=== PATIENT | male | born 1995 | race Two or more races ===

== ENCOUNTER 2022-07-01 23:16 | Inpatient (IN) | payer MEDICAID, OTHER ==
[~2022-07-01] VITALS: Ht 167.6 cm; Wt 54.9 kg
[2022-07-02 02:05] LABS: COVID AG,FIA SOURCE NASAL SWAB
[2022-07-02] MEDS ORDERED: ZOLPIDEM TARTRATE 10 MG TABLET PO PRN (02:30)
[2022-07-02] MEDS ORDERED: HALOPERIDOL 5 MG TABLET PO PRN (02:30)
[2022-07-02] MEDS ORDERED: LORazepam 2 MG TABLET PO PRN (02:30)
[2022-07-02 05:03] VITALS: BP 128/72
[2022-07-02 08:06] VITALS: BP 126/76
[2022-07-02] MEDS ORDERED: ACETAMINOPHEN 325 MG TABLET PO PRN (14:30)
[2022-07-02] MEDS ORDERED: MAGNESIUM HYDROXIDE SUSPENSION 30 ML UDCUP PO PRN (14:30)
[2022-07-02] MEDS ORDERED: BACITRACIN 28 GM OINTMENT TP PRN (14:30)
[2022-07-02] MEDS ORDERED: BENZOCAINE/MENTHOL LOZENGE PO PRN (14:30)
[2022-07-02] MEDS ORDERED: PETROLATUM,WHITE 28 GM JELLY TP PRN (14:30)
[2022-07-02] MEDS ORDERED: OMEPRAZOLE 20 MG CAPSULE PO PRN (14:30)
[2022-07-02] MEDS ORDERED: CloNIDine HCL 0.1 MG TABLET PO PRN (14:30)
[2022-07-02] MEDS ORDERED: MAG HYDROX/AL HYDROX/SIMETH ES 30 ML SUSPENSION UDCUP PO PRN (14:30)
[2022-07-02] MEDS ORDERED: DOCUSATE SODIUM 100 MG CAPSULE PO PRN (14:30)
[2022-07-02] MEDS ORDERED: LOPERAMIDE HCL 2 MG CAPSULE PO PRN (14:30)
[2022-07-02] MEDS ORDERED: ALBUTEROL SULFATE HFA 90 MCG/PUFF 8 GM INHALER IH PRN (14:30)
[2022-07-02] MEDS ORDERED: ONDANSETRON HCL 4 MG TABLET PO PRN (14:30)
[2022-07-02] MEDS ORDERED: IBUPROFEN 600 MG TABLET PO PRN (14:30)
[2022-07-03 04:00] VITALS: BP 123/78
[2022-07-03 07:10] LABS: BASOPHILS % (AUTO) 1.1 % (0.0-2.0); EOSINOPHILS % (AUTO) 1.8 % (1.0-6.0); HEMOGLOBIN 15.7 g/dL (13.5-17.5); LYMPHOCYTES # (AUTO) 1.7 K/uL (1.0-4.8); LYMPHOCYTES % (AUTO) 37.5 % (22.0-44.0); MEAN CORPUSCULAR HEMOGLOBIN 32.1 pg (26.0-34.0); MEAN CORPUSCULAR VOLUME 92 fL (80-100); MONOCYTES # (AUTO) 0.4 K/uL (0.1-1.0); MONOCYTES % (AUTO) 8.9 % (2.0-9.0); NEUTROPHILS # (AUTO) 2.3 K/uL (1.8-7.7); NEUTROPHILS % (AUTO) 50.7 % (40.0-70.0); PLATELET COUNT (AUTO) 252 K/uL (150-450); RED BLOOD CELL COUNT(AUTO) 4.91 MIL/uL (4.50-5.90); RED CELL DISTRIBUTION WIDTH 12.8 % (11.5-14.5)
[2022-07-03 07:32] LABS: ALANINE AMINOTRANSFERASE 16 U/L (12-78); ALBUMIN 4.4 g/dL (3.4-5.0); ALKALINE PHOSPHATASE 63 U/L (46-116); ANION GAP 10 mmol/L (8-16); ASPARTATE AMINOTRANSFERASE 18 U/L (15-37); BILIRUBIN,TOTAL 1.4 mg/dL (0.1-1.0); CALCIUM, TOTAL 9.6 mg/dL (8.8-10.5); CARBON DIOXIDE 28 mmol/L (22-29); CHLORIDE 99 mmol/L (98-107); CHOL/HDL RATIO 2.6 (4.2-7.3); CHOLESTEROL 165 mg/dL (131-200); CREATININE 0.99 mg/dL (0.60-1.30); FREE T4 (FREE THYROXINE) 0.94 ng/dL (0.76-1.46); GLOMERULAR FILTR. RATE CALC > 60 mL/min (>60); GLUCOSE,RANDOM 72 mg/dL (70-110); HDL CHOLESTEROL 63 mg/dL (40-60); LDL CHOL (CALC.) 64 mg/dL (0-130); POTASSIUM 3.6 mmol/L (3.5-5.1); SODIUM SERUM 137 mmol/L (136-145); THYROID STIMULATING HORMONE 0.27 uIU/mL (0.36-3.74); TOTAL PROTEIN, SERUM 7.7 g/dL (6.4-8.2); TRIGLYCERIDES 190 mg/dL (15-150); UREA NITROGEN, BLOOD 18 mg/dL (7-18)
[2022-07-03 07:53] LABS: AMPHET/METH SCREEN,URINE NEGATIVE (NEGATIVE); BARBITURATE SCREEN, URINE NEGATIVE (NEGATIVE); BENZODIAZEPINES SCREEN,URINE NEGATIVE (NEGATIVE); CANNABINOID SCREEN,URINE POSITIVE (NEGATIVE); COCAINE SCREEN,URINE NEGATIVE (NEGATIVE); METHADONE SCREEN, URINE NEGATIVE (NEGATIVE); OPIATE SCREEN,URINE NEGATIVE (NEGATIVE); PHENCYCLIDINE SCREEN,URINE NEGATIVE (NEGATIVE)
[2022-07-03 08:39] LABS: APPEARANCE,URINE TURBID (CLEAR); BILIRUBIN,URINE NEGATIVE (NEGATIVE); GLUCOSE, URINE (UA) NEGATIVE (NEGATIVE); LEUKOCYTE ESTERASE ,URINE NEGATIVE (NEGATIVE); NITRATE,URINE NEGATIVE (NEGATIVE); OCCULT BLOOD,URINE NEGATIVE (NEGATIVE); PROTEIN,URINE TRACE mg/dL (NEGATIVE); SPECIFIC GRAVITIY, URINE 1.021 (1.003-1.030); UROBILINOGEN,URINE <=1.0 mg/dL (<=1.0)
[2022-07-03 09:09] VITALS: BP 122/68
== END 2022-07-03 16:12 | disposition home or self-care (01) | DRG 754 ==
LOC: EMS 23:19 → B3A 07-02 02:48
PROVIDERS: ADMIT Psychiatry & Neurology Psychiatry; ATTEND Psychiatry & Neurology Psychiatry
DX: F32.9 Major depressive disorder, single episode, unspecified (principal); R45.851 Suicidal ideations; F41.9 Anxiety disorder, unspecified; G47.00 Insomnia, unspecified; K59.00 Constipation, unspecified; F10.129 Alcohol abuse with intoxication, unspecified; Z20.822 Contact with and (suspected) exposure to COVID-19; Z79.899 Other long term (current) drug therapy
CPT/HCPCS: 80053; 80061; 81003; 84439; 84443; 85025; 99285; G0480

== ENCOUNTER 2022-12-20 22:50 | Inpatient (IN) | payer MEDICAID, OTHER ==
[~2022-12-20] VITALS: Ht 167.6 cm; Wt 57.0 kg
[2022-12-21 00:32] LABS: COVID AG,FIA SOURCE NASOPHARYNGEAL
[2022-12-21 00:43] LABS: AMPHET/METH SCREEN,URINE NEGATIVE (NEGATIVE); BARBITURATE SCREEN, URINE NEGATIVE (NEGATIVE); BENZODIAZEPINES SCREEN,URINE NEGATIVE (NEGATIVE); CANNABINOID SCREEN,URINE POSITIVE (NEGATIVE); COCAINE SCREEN,URINE NEGATIVE (NEGATIVE); METHADONE SCREEN, URINE NEGATIVE (NEGATIVE); OPIATE SCREEN,URINE NEGATIVE (NEGATIVE); PHENCYCLIDINE SCREEN,URINE NEGATIVE (NEGATIVE)
[2022-12-21] MEDS ORDERED: LORazepam 2 MG TABLET PO PRN (13:00)
[2022-12-21] MEDS ORDERED: ZOLPIDEM TARTRATE 10 MG TABLET PO PRN (13:00)
[2022-12-21] MEDS ORDERED: HALOPERIDOL 5 MG TABLET PO PRN (13:00)
[2022-12-21 21:00] VITALS: BP 137/89
[2022-12-21] MEDS ORDERED: ALBUTEROL SULFATE HFA 90 MCG/PUFF 8 GM INHALER IH PRN (22:30)
[2022-12-21] MEDS ORDERED: LOPERAMIDE HCL 2 MG CAPSULE PO PRN (22:30)
[2022-12-21] MEDS ORDERED: CloNIDine HCL 0.1 MG TABLET PO PRN (22:30)
[2022-12-21] MEDS ORDERED: ONDANSETRON HCL 4 MG TABLET PO PRN (22:30)
[2022-12-21] MEDS ORDERED: BACITRACIN 28 GM OINTMENT TP PRN (22:30)
[2022-12-21] MEDS ORDERED: OMEPRAZOLE 20 MG CAPSULE PO PRN (22:30)
[2022-12-21] MEDS ORDERED: PETROLATUM,WHITE 28 GM JELLY TP PRN (22:30)
[2022-12-21] MEDS ORDERED: IBUPROFEN 600 MG TABLET PO PRN (22:30)
[2022-12-21] MEDS ORDERED: MAGNESIUM HYDROXIDE SUSPENSION 30 ML UDCUP PO PRN (22:30)
[2022-12-21] MEDS ORDERED: MAG HYDROX/AL HYDROX/SIMETH ES 30 ML SUSPENSION UDCUP PO PRN (22:30)
[2022-12-21] MEDS ORDERED: ACETAMINOPHEN 325 MG TABLET PO PRN (22:30)
[2022-12-21] MEDS ORDERED: DOCUSATE SODIUM 100 MG CAPSULE PO PRN (22:30)
== END 2022-12-22 18:40 | disposition left against medical advice (07) | DRG 754 ==
LOC: EMS 22:52 → 3EI 12-21 18:36 → 3EC 12-21 19:57
PROVIDERS: ADMIT Psychiatry & Neurology Child & Adolescent Psychiatry; ATTEND Psychiatry & Neurology Child & Adolescent Psychiatry
DX: F32.9 Major depressive disorder, single episode, unspecified (principal); R45.851 Suicidal ideations; Z20.822 Contact with and (suspected) exposure to COVID-19; F10.10 Alcohol abuse, uncomplicated; Z53.29 Procedure and treatment not carried out because of patient's decision for other reasons; F12.90 Cannabis use, unspecified, uncomplicated
CPT/HCPCS: 80307; 99283

== ENCOUNTER 2024-02-01 19:33 | Inpatient (IN) | payer MEDICAID, OTHER ==
[~2024-02-01] VITALS: Ht 167.6 cm; Wt 52.3 kg
[2024-02-01 20:11] LABS: COVID AG,FIA SOURCE NASAL SWAB
[2024-02-01 20:22] LABS: ALCOHOL, URINE DRUG SCREEN POSITIVE (NEGATIVE); AMPHET/METH SCREEN,URINE NEGATIVE (NEGATIVE); BARBITURATE SCREEN, URINE NEGATIVE (NEGATIVE); BENZODIAZEPINES SCREEN,URINE NEGATIVE (NEGATIVE); CANNABINOID SCREEN,URINE POSITIVE (NEGATIVE); COCAINE SCREEN,URINE NEGATIVE (NEGATIVE); METHADONE SCREEN, URINE NEGATIVE (NEGATIVE); OPIATE SCREEN,URINE NEGATIVE (NEGATIVE); PHENCYCLIDINE SCREEN,URINE NEGATIVE (NEGATIVE)
[2024-02-01 20:32] LABS: SARS-COV2 (COVID) ANTIGEN,FIA Negative (Negative)
[2024-02-01 22:02] LABS: BASOPHILS % (AUTO) 0.6 % (0.0-2.0); EOSINOPHILS % (AUTO) 1.9 % (1.0-6.0); HEMATOCRIT 47.5 % (41-53); HEMOGLOBIN 16.3 g/dL (13.5-17.5); LYMPHOCYTES # (AUTO) 1.4 K/uL (1.0-4.8); LYMPHOCYTES % (AUTO) 24.2 % (22.0-44.0); MEAN CORPUSCULAR HEMOGLOBIN 31.7 pg (26.0-34.0); MEAN CORPUSCULAR HGB CONC 34.4 G/dL (31.0-37.0); MEAN CORPUSCULAR VOLUME 92 fL (80-100); MONOCYTES # (AUTO) 0.3 K/uL (0.1-1.0); MONOCYTES % (AUTO) 4.7 % (2.0-9.0); NEUTROPHILS # (AUTO) 3.9 K/uL (1.8-7.7); NEUTROPHILS % (AUTO) 68.6 % (40.0-70.0); PLATELET COUNT (AUTO) 282 K/uL (150-450); RED BLOOD CELL COUNT(AUTO) 5.16 MIL/uL (4.50-5.90); RED CELL DISTRIBUTION WIDTH 13.4 % (11.5-14.5); WHITE BLOOD COUNT (AUTO) 5.6 K/uL (4.5-11.0)
[2024-02-01 22:08] LABS: ANION GAP 11 mmol/L (8-16); CALCIUM, TOTAL 9.4 mg/dL (8.8-10.5); CARBON DIOXIDE 29 mmol/L (22-29); CHLORIDE 103 mmol/L (98-107); CREATININE 0.79 mg/dL (0.60-1.30); GLOMERULAR FILTR. RATE CALC > 60 mL/min (>60); GLUCOSE,RANDOM 106 mg/dL (70-110); POTASSIUM 3.6 mmol/L (3.5-5.1); SODIUM SERUM 143 mmol/L (136-145); UREA NITROGEN, BLOOD 8 mg/dL (7-18)
[2024-02-01 22:24] LABS: ALCOHOL, BLOOD (SERUM) 201 mg/dL (0-10)
[2024-02-01] MEDS: NICOTINE 21 MG/24 HOUR PATCH TD ONE (23:53)
[2024-02-02] MEDS ORDERED: ZOLPIDEM TARTRATE 10 MG TABLET PO PRN (01:45)
[2024-02-02] MEDS: LORazepam 2 MG/ML VIAL IM ONE (03:14)
[2024-02-02] MEDS: DiphenhydrAMINE HCL 50 MG/ML VIAL IM ONE (03:14)
[2024-02-02] MEDS: HALOPERIDOL LACTATE 5 MG/ML VIAL IM ONE (03:14)
[2024-02-02 03:20] VITALS: BP 112/83; PULSE 98; RESP 18; TEMP 98.1; O2SAT 99
[2024-02-02] MEDS: LORazepam 2 MG TABLET PO PRN (04:05)
[2024-02-02 04:20] VITALS: BP 106/76; PULSE 93; RESP 16; TEMP 97.8; O2SAT 98
[2024-02-02 04:58] VITALS: BP 112/83; PULSE 98; RESP 18; TEMP 98.1; O2SAT 99
[2024-02-02 05:20] VITALS: BP 103/72; PULSE 88; RESP 18; TEMP 97.5; O2SAT 96
[2024-02-02 06:20] VITALS: RESP 18
[2024-02-02 08:21] VITALS: BP 129/81; PULSE 105; RESP 17; TEMP 98.4; O2SAT 95
[2024-02-02] MEDS: HALOPERIDOL 5 MG TABLET PO PRN (08:40)
[2024-02-02] MEDS ORDERED: ACETAMINOPHEN 325 MG TABLET PO PRN (10:45)
[2024-02-02] MEDS ORDERED: BENZOCAINE/MENTHOL LOZENGE PO PRN (10:45)
[2024-02-02] MEDS ORDERED: BACITRACIN 28 GM OINTMENT TP PRN (10:45)
[2024-02-02] MEDS ORDERED: DOCUSATE SODIUM 100 MG CAPSULE PO PRN (10:45)
[2024-02-02] MEDS ORDERED: CloNIDine HCL 0.1 MG TABLET PO PRN (10:45)
[2024-02-02] MEDS ORDERED: MAGNESIUM HYDROXIDE SUSPENSION 30 ML UDCUP PO PRN (10:45)
[2024-02-02] MEDS ORDERED: ONDANSETRON HCL 4 MG TABLET PO PRN (10:45)
[2024-02-02] MEDS ORDERED: OMEPRAZOLE 20 MG CAPSULE PO PRN (10:45)
[2024-02-02] MEDS ORDERED: PETROLATUM,WHITE 28 GM JELLY TP PRN (10:45)
[2024-02-02] MEDS ORDERED: IBUPROFEN 600 MG TABLET PO PRN (10:45)
[2024-02-02] MEDS ORDERED: MAG HYDROX/ALUMINUM HYD/SIMETH ES 30 ML SUSPENSION UDCUP PO PRN (10:45)
[2024-02-02] MEDS ORDERED: ALBUTEROL SULFATE HFA 90 MCG/PUFF 8 GM INHALER IH PRN (10:45)
[2024-02-02] MEDS ORDERED: LOPERAMIDE HCL 2 MG CAPSULE PO PRN (10:45)
== END 2024-02-02 14:07 | disposition home or self-care (01) | DRG 751 ==
LOC: EMS 19:39 → B3A 02-02 03:31
PROVIDERS: ADMIT Psychiatry & Neurology Psychiatry; ATTEND Psychiatry & Neurology Psychiatry
PROC: GZHZZZZ Group Psychotherapy (ICD-10-PCS; principal; 2024-02-02)
PROC: GZ51ZZZ Individual Psychotherapy, Behavioral (ICD-10-PCS; 2024-02-02)
DX: F33.9 Major depressive disorder, recurrent, unspecified (principal); R45.851 Suicidal ideations; F10.229 Alcohol dependence with intoxication, unspecified; F12.10 Cannabis abuse, uncomplicated; Z20.822 Contact with and (suspected) exposure to COVID-19; F17.290 Nicotine dependence, other tobacco product, uncomplicated; F41.9 Anxiety disorder, unspecified; G47.00 Insomnia, unspecified; K59.00 Constipation, unspecified
CPT/HCPCS: 80048; 80307; 85025; 99285; G0480; J1200; J1630; J2060